=== PATIENT | female | born 2000 | race Two or more races ===

== ENCOUNTER 2019-07-09 11:27 | Observation (INO) | payer MEDICAID, OTHER ==
[~2019-07-09] VITALS: Ht 152.4 cm; Wt 68.5 kg
[2019-07-09] MEDS ORDERED: PREN-96 PO (13:25)
== END 2019-07-09 14:37 | disposition home or self-care (01) | DRG 563 ==
LOC: LDRP 11:27
PROVIDERS: ADMIT Specialist; ATTEND Specialist
DX: O60.03 Preterm labor without delivery, third trimester (principal); Z3A.32 32 weeks gestation of pregnancy; Z91.040 Latex allergy status
CPT/HCPCS: 59025; 76818; 81002; G0378

== ENCOUNTER 2019-08-24 18:35 | Observation (INO) | payer MEDICAID ==
[~2019-08-24] VITALS: Ht 154.9 cm; Wt 74.8 kg
[~2019-08-24 18:35] MED LIST: PREN-96 PO
== END 2019-08-24 20:18 | disposition home or self-care (01) | DRG 566 ==
LOC: LDRP 18:35
PROVIDERS: ADMIT Obstetrics & Gynecology; ATTEND Obstetrics & Gynecology
DX: O42.92 Full-term premature rupture of membranes, unspecified as to length of time between rupture and onset of labor (principal); Z3A.39 39 weeks gestation of pregnancy; Z91.040 Latex allergy status
CPT/HCPCS: 59025; 76815; 84112; G0378

== ENCOUNTER 2019-08-25 02:02 | Inpatient (IN) | payer MEDICAID ==
[~2019-08-25] VITALS: Ht 154.9 cm; Wt 74.8 kg
[2019-08-25] MEDS ORDERED: LACT. RINGERS/OXYTOCIN 20UNITS 1,000 ML IV SCH (04:22)
[2019-08-25] MEDS ORDERED: PHISODERM TOP SOLN 240ML BTL TOP PRN (04:30)
[2019-08-25] MEDS ORDERED: PENICILLIN G POT 5MIL/D5 50ML 50 ML IV ONE (04:30)
[2019-08-25] MEDS ORDERED: DERMOPLAST 60ML BOTTLE TOP PRN (04:30)
[2019-08-25] MEDS ORDERED: LIDOCAINE 2%HCL (LOCAL ANESTH.) INJ 20ML MDV ID ONE (04:30)
[2019-08-25] MEDS ORDERED: WITCH HAZEL-GLYCERIN PAD TOP PRN (04:30)
[2019-08-25] MEDS ORDERED: METHYLERGONOVINE MALEATE 0.2 MG/ML AMP IM PRN (04:30)
[2019-08-25] MEDS: LACTATED RINGER'S 1,000 ML IV SCH ×5 (04:40→19:02)
[2019-08-25 05:12] LABS: Basophils # (auto) 0.1 10 ^3/uL (0-0.2); Basophils % (auto) 0.5 % (0.0-2.0); Eosinophils # (auto) 0.1 10 ^3/uL (0-0.8); Eosinophils % (auto) 0.8 % (0.0-7.0); Hematocrit 37.4 % (36.0-46.0); Hemoglobin 12.7 g/dL (12.2-16.2); Lymphocytes # (auto) 3.6 10 ^3/uL (0.4-5.4); Lymphocytes % (auto) 30.6 % (10.0-50.0); Mean Corpuscular Hemoglobin 30.1 pg (28.0-32.0); Mean Corpuscular Hgb Conc. 33.9 g/dL (32.0-36.0); Mean Corpuscular Volume 88.8 fL (80.0-100.0); Monocytes # (auto) 0.9 10 ^3/uL (0-1.3); Monocytes % (auto) 8.1 % (0.0-12.0); Platelet Count (auto) 292 10^3/uL (140-450); Red Blood Cells 4.21 10^6/uL (4.0-5.20); Red Cell Distribution Width 13.6 % (11.8-14.3); White Blood Cell 11.6 10^3/uL (4.4-10.8)
[2019-08-25 05:27] LABS: INR 0.95 (0.9-1.15); Partial Thromboplastin Time 28.9 sec (23.64-32.05)
[2019-08-25 05:30] LABS: Albumin 2.6 g/dL (3.4-5.0); BUN/Creatinine Ratio 12.8; Calcium 9.4 mg/dL (8.5-10.1); Potassium 3.5 mmol/L (3.5-5.1)
[2019-08-25 05:32] LABS: Amphetamine Screen, Urine NEGATIVE (NEGATIVE); Barbiturate Scree,Urine NEGATIVE (NEGATIVE); Benzodiazephine Screen, Urine NEGATIVE (NEGATIVE); Cannabinoid Screen, Urine NEGATIVE (NEGATIVE); Cocaine Screen, Urine NEGATIVE (NEGATIVE); Opiate Scree,Urine NEGATIVE (NEGATIVE); Phencyclidine Screen, Urine NEGATIVE (NEGATIVE)
[2019-08-25 05:33] LABS: Bilirubin, Total 0.4 mg/dL (0.2-1.0); Total Protein 7.2 g/dL (6.4-8.2)
[2019-08-25 05:39] LABS: Urine Bacteria FEW /hpf (None Seen); Urine Blood 1+ /uL (Negative); Urine Specific Gravity 1.008 (1.001-1.035); Urine WBC 12 /hpf (0 - 5)
[2019-08-25] MEDS ORDERED: PROMETHAZINE HCL 25 MG/ML 1ML IM ONE (05:45)
[2019-08-25] MEDS ORDERED: BUTORPHANOL TARTRATE 2 MG/1 ML VIAL IV ONE (05:45)
[2019-08-25] MEDS ORDERED: BUTORPHANOL TARTRATE 2 MG/1 ML VIAL ONE (06:30)
[2019-08-25] MEDS ORDERED: fentaNYL 200mCg/100ml W ROPIVA 100 ML EPI SCH (08:30)
[2019-08-25] MEDS ORDERED: LIDOCAINE HCL 2 %PF INJ 10ML AMP IJ ONE (08:30)
[2019-08-25] MEDS ORDERED: ePHEDrine SULFATE 50 MG/ML AMP IV ONE (08:30)
[2019-08-25] MEDS ORDERED: fentaNYL CITRATE 100 MCG/2 ML VL IV ONE (08:30)
[2019-08-25] MEDS ORDERED: NALOXONE HCL 0.4 MG/ML VIAL IV ONE (08:30)
[2019-08-25] MEDS ORDERED: LACTATED RINGER'S 1,000 ML IV ONE (08:30)
[2019-08-25] MEDS: PENICILLIN G POTASSIUM 2,500,000 UNITS in D5W 5% 50 ML IV SCH ×3 (09:33→16:28)
[2019-08-25] MEDS ORDERED: ceFAZolin 1GM/50ML 50 ML IV SCH (19:00)
[2019-08-25] MEDS ORDERED: ACETAMINOPHEN 325 MG TAB PO PRN (19:30)
[2019-08-25] MEDS ORDERED: miSOPROStol 100 mcg TAB ONE (19:58)
[2019-08-25] MEDS ORDERED: ONDANSETRON HCL 4 MG/2 ML VIAL ONE (20:23)
[2019-08-25] MEDS ORDERED: ONDANSETRON HCL 4 MG/2 ML VIAL IV PRN (20:30)
[2019-08-25] MEDS: ceFAZolin 1GM/50ML 50 ML IV SCH (20:54)
--- NOTE | 2019-08-25 22:15 | NUR ---
Ambulation: Patient educated on POC with assistance of Bengali speaking lead neurodiagnostic technologist. Patient OOB with standby assistance by RN. Patient ambulated to bathroom with steady gait. Patient able to void without difficulty. [facility] teaching provided with returned demonstration by patient. Clean gown provided and bed linen changed. Patient ambulated back to bed with steady gait and no distress noted.
--- NOTE | 2019-08-25 22:35 | NUR ---
Teaching: Reviewed information in [facility] booklet with patient with [place] speaking machines technician at bedside for assistance. Discussed benefits of and risks associated with not . Discussed different positions, proper latch, feeding cues, and baby-led . Provided information of medication side effects related to . All questions and concerns addressed at this time. Patient verbalized understanding of information.
[2019-08-25 23:30] VITALS: BP 114/67
[2019-08-26] MEDS ORDERED: IBUPROFEN 600 MG TAB PO PRN (01:30)
[2019-08-26] MEDS ORDERED: ACETAMINOPHEN 325 MG TAB PO PRN (01:30)
[2019-08-26 02:50] VITALS: BP 114/77
[2019-08-26] MEDS: ceFAZolin 1GM/50ML 50 ML IV SCH ×2 (04:26→12:30)
[2019-08-26 07:07] LABS: RPR Non Reactive (Non Reactive)
[2019-08-26 07:30] VITALS: BP 101/53
[2019-08-26] MEDS: DOCUSATE CALCIUM 240 MG CAP PO SCH (10:30)
[2019-08-26 11:00] VITALS: BP 107/67
[2019-08-26 14:30] VITALS: BP 89/56
[2019-08-26] MEDS ORDERED: TETANUS-DIPTH-ACEL PERTUSSIS 0.5ML SYR Tdap IM ONE (17:45)
[2019-08-26] MEDS ORDERED: INFLUENZA QUAD 2019-2020 0.5ml SYRG IM ONE (17:45)
[2019-08-26 19:00] VITALS: BP 92/41
[2019-08-26 22:51] VITALS: BP 100/66
[2019-08-27 03:00] VITALS: BP 104/72
[2019-08-27 06:40] VITALS: BP 110/67
[2019-08-27] MEDS ORDERED: MEASLES, MUMPS & RUBELLA VAC(MMRII) 0.5ML SC ONE (08:00)
--- NOTE | 2019-08-27 10:15 | NUR ---
Discharge: Discharge instructions given as ordered. Pt encouraged to follow up with [facility] as instructed. All questions and concerns addressed. Patient verbalized understanding. Medication reconciliation completed and copy given to patient. All required/requested vaccines given and copies of vaccinations given to patient. Patient encouraged to prepare to depart unit.
[2019-08-27] MEDS: DOCUSATE CALCIUM 240 MG CAP PO SCH (10:29)
[2019-08-27 10:40] VITALS: BP 116/65
--- NOTE | 2019-08-27 11:05 | NUR ---
Discharge: Patient taken to vehicle ambulatory via steady gait, pt declined wheelchair, with all personal belongings, accompanied by staff and family member. No distress noted at time of departure, no adverse changes in status since initial assessment.
== END 2019-08-27 11:05 | disposition home or self-care (01) | DRG 560 ==
LOC: OBSVTOIN 02:02 → LDRP 02:02
PROVIDERS: ADMIT Obstetrics & Gynecology; ATTEND Obstetrics & Gynecology
PROC: 3E0S3BZ Introduction of Anesthetic Agent into Epidural Space, Percutaneous Approach (ICD-10-PCS; principal; 2019-08-25)
PROC: 10E0XZZ Delivery of Products of Conception, External Approach (ICD-10-PCS; 2019-08-25)
PROC: 0W8NXZZ Division of Female Perineum, External Approach (ICD-10-PCS; 2019-08-25)
DX: O99.824 Streptococcus B carrier state complicating childbirth (principal); Z37.0 Single live birth; Z3A.39 39 weeks gestation of pregnancy
CPT/HCPCS: 36415; 51702; 59025; 59409; 62282; 80053; 80307; 81001; 81002; 84112; 85025; 85610; 85730; 86592; 86850; 86900; 86901; 90472; 90686; 90715; 94760; 96365; 96366; 96372; 96374; 96375; G0378; J0690; J2405; J2540; J2590; J7060